=== PATIENT | male | born 1950 | race African-American/Black ===

== ENCOUNTER 2024-04-22 09:55 | Emergency (ER) | payer OTHER, MEDICARE ==
[~2024-04-22] VITALS: Ht 188 cm; Wt 78.2 kg
[~2024-04-22 09:55] MED LIST: IBUP-1572 PO; NORCO10T PO
[2024-04-22 09:59] VITALS: BP 151/93; PULSE 76; RESP 18; TEMP 97.8; O2SAT 100
[2024-04-22] MEDS ORDERED: BACL10TA2 PO (11:01)
[2024-04-22] MEDS ORDERED: HYDR-3965 PO (11:02)
== END 2024-04-22 11:17 | disposition home or self-care (01) ==
LOC: ER 09:56
DX: M54.2 Cervicalgia (principal); M25.512 Pain in left shoulder; M25.511 Pain in right shoulder; F12.90 Cannabis use, unspecified, uncomplicated; Z79.899 Other long term (current) drug therapy
CPT/HCPCS: 99283